=== PATIENT | male | born 1970 | race Two or more races ===

== ENCOUNTER 2022-12-12 08:21 | Emergency (ER) | payer OTHER ==
[~2022-12-12] VITALS: Ht 167.6 cm; Wt 90.7 kg
[2022-12-12] MEDS ORDERED: COZAAR25 MG PO (08:24)
== END 2022-12-12 14:51 | disposition home or self-care (01) ==
LOC: ER 08:21
PROVIDERS: Emergency Medicine
DX: K52.9 Noninfective gastroenteritis and colitis, unspecified (principal); I10 Essential (primary) hypertension